=== PATIENT | female | born 1990 | race Caucasian/White ===

== ENCOUNTER 2019-01-12 08:56 | Emergency (ER) | payer BC ==
[~2019-01-12] VITALS: Ht 170.2 cm; Wt 108.9 kg
[~2019-01-12 08:56] MED LIST: ABILIFY5 MG PO; ADDERALL XR 3030 MG PO; CYTOMEL25 MCG PO
--- OUTSIDE RECORDS SUMMARY | 2019-01-12 08:59 | XMS REPORT | Summary of Care ---
Author Author NELSY Akbar, MANDI De Unknown Address Unknown Phone Unavailable Care Team Providers Care Indirect Sales Representative Name Role Phone Edgar MRory., Cee Unavailable Unavailable OLIVERIO CONRAD M.D. Unavailable Unavailable ANAMARIA VELASCO, OLIVERIO Unavailable Unavailable JACEK VELASCO ID, EMELY Unavailable Unavailable NANETTE ROMERO ID, MILI Unavailable Unavailable Unavailable Unavailable Functional Status Name Dates Details Functional status health issues are not documented Status: Name Dates Details Cognitive status health issues are not documented Status: Problems Name Dates Details Vaginal discharge (623.5, N89.8) Status: Active Encounter for routine gynecological examination with Papanicolaou smear of cervix (V72.31, Z01.419) Status: Active PCOS (polycystic ovarian syndrome) (256.4, E28.2) Status: Active Encounter for removal of subdermal contraceptive implant (V25.43, Z30.46) Status: Active Insertion of implantable subdermal contraceptive (V25.5, Z30.017) Status: Active Nexplanon removal (V25.43, Z30.46) Status: Active Nexplanon insertion (V25.5, Z30.017) Status: Active Medications Name Dates Details Nexplanon 68 MG Subcutaneous Implant * Start : 01-Feb-2015 Active Topamax 100 MG Oral Tablet * Refills: 0 Edgar M.A., Cee * Start : 22-Jan-2018 Active Vraylar 1.5 MG Oral Capsule * Refills: 0 Edgar M.A., Cee * Start : 22-Jan-2018 Active Pristiq 50 MG Oral Tablet Extended Release 24 Hour * Refills: 0 Edgar M.A., Cee * Start : 22-Jan-2018 Active Adderall 30 MG Oral Tablet * Refills: 0 * Start : 23-May-2013 Active Allergies and Adverse Reactions Name Dates Details No Known Drug Allergies (Allergy) Status: Active Past Medical History Name Dates Details Insertion of implantable subdermal contraceptive (V25.5, Z30.017) Status: Active Procedures Procedure Dates Details Procedures not documented Immunization Name Dates Details Gardasil Intramuscular Suspension #1 Lot #: [id number] on: 01-Nov-2010 Gardasil Intramuscular Suspension Lot #: [id number] on: 02-Jan-2011 Gardasil Intramuscular Suspension #3 Lot #: [id number] on: 25-Apr-2011 Fluvirin INJ #1 Lot #: [id number] on: 05-Feb-2012 Family History Name Dates Details Family history of lung cancer (V16.1, Z80.1) Status: Active Name Dates Details Family history of depression (V17.0, Z81.8) Status: Active Social History Name Dates Details - Status: Name Dates Details Never smoker Never smoker Vital Signs Date Test Result Details No Known Vitals to report Results Date Description Value Details [id number] [[facility]] CBC (INCLUDES DIFF/PLT) WBC 6.1 {K/CMM} Range: 3.7-10.4 RBC 4.10 {M/CMM} (Below low threshold) Range: 4.20-5.40 Hgb 13.3 g/dl Range: 12.0-16.0 Hct 38.7 % Range: 36.0-48.0 MCV 94.3 fL Range: 80.0-98.0 MCH 32.4 pg (Above high threshold) Range: 27.0-31.0 MCHC 34.4 g/dl Range: 32.0-36.0 RDW 12.9 % Range: 11.5-14.5 Platelet 241 {K/CMM} Range: 133-450 Mean Platelet Volume 8.6 fL Range: 7.4-10.4 [id number] [[facility]] Differential Segmented Neutrophils 59.0 % Range: 45.0-75.0 Monocytes 8.4 % Range: 2.0-12.0 Lymphocytes 30.5 % Range: 20.0-40.0 Eosinophils 1.2 % Range: 0.0-4.0 Basophils 0.9 % Range: 0.0-1.0 Segs-Bands # 3.6 {K/CMM} Range: 1.5-8.1 Lymphocytes # 1.9 {K/CMM} Range: 1.0-5.5 Monocytes # 0.5 {K/CMM} Range: 0.0-0.8 Eosinophils # 0.1 {K/CMM} Range: 0.0-0.5 Basophils # 0.1 {K/CMM} Range: 0.0-0.2 [id number] [[facility]] CMP W/EGFR Sodium Level 142 {mEq/l} Range: 135-145 Potassium Level 4.2 {mEq/l} Range: 3.5-5.1 Chloride Level 109 {mEq/l} Range: 95-109 Carbon Dioxide 23 {mEq/l} (Below low threshold) Range: 24-32 AGAP 14.2 {mEq/l} Range: 10.0-20.0 Glucose Lvl 94 mg/dl Range: 70-99 Comments: Adult reference range values reflect the clinical guidelinesof the [place] [employer]. Creatinine Lvl 0.90 mg/dl Range: 0.50-1.40 Blood Urea Nitrogen 10 mg/dl Range: 7-22 BUN/Creatinine Ratio 11 Range: 6-25 Total Protein 7.0 g/dl Range: 6.4-8.4 Albumin Lvl 3.6 g/dl Range: 3.5-5.0 Globulin 3.4 g/dl Range: 2.7-4.2 A/G Ratio 1.1 Range: 0.7-1.6 Calcium Level Total 8.9 mg/dl Range: 8.5-10.5 ALT 25 u/l Range: 0-65 AST 10 u/l Range: 0-37 Bili Total 0.4 mg/dl Range: 0.2-1.3 Alk Phos 104 u/l Range: 39-136 Comments: The pediatric reference ranges for this test represent a CLSI- basedtransference of the CALIPER database of pediatric reference intervals to the[facility] analyzer (Clinical Biochemistry 46 (2013): 9064-6362). [facility] [employer] has not internally validated these referenceranges and therefore they should be used only in the context of a thoroughclinical assessment. eGFR 89 {ML/MIN/1.7} Comments: The eGFR is calculated using the CKD-EPI formula. In most young, healthyindividuals the eGFR will be >90 mL/min/1.73m2. The eGFR declines with age. AneGFR of 60-89 may be normal in some populations, particularly the elderly, forwhom the CKD-EPI formula has not been extensively validated. Use of the eGFR isnot recommended in the following populations:Individuals with unstable creatinine concentrations, including patients and those with serious co-morbid conditions.Patients with extremes in muscle mass or diet.The data above are obtained from the National Kidney Disease Education Program(NKDEP) which additionally recommends that when the eGFR is used in patientswith extremes of body mass index for purposes of drug dosing, the eGFR shouldbe multiplied by the estimated BMI. [[facility]] FOLATE, SERUM Folate Level 8.2 ng/ml Range: >=3.0 [[facility]] IRON AND TOTAL IRON BINDING CAPACITY Iron 59 ug/dL Range: 30-160 % Satur Fe 18 % Range: 12-57 TIBC 330 ug/dL Range: 228-428 UIBC 271 ug/dL Range: 110-370 [[facility]] LIPID PANEL Chol 188 mg/dl Range: <=199 Trig 246 mg/dl (Above high threshold) Range: <=149 HDL Cholesterol 37 mg/dl (Below low threshold) Range: >=61 LDL 102 mg/dl (Above high threshold) Range: <=99 CHD Risk 5.08 Range: 3.90-5.80 VLDL 49 [[facility]] VITAMIN B12 Vitamin B12 Level 328 pg/ml Range: 254-1320 [[facility]] TSH, 3RD GENERATION W/REFLEX TO FT4 TSH 2.190 {uIU/ml} Range: 0.360-3.740 [[facility]] PTH, INTACT (WITHOUT CALCIUM) Parathyroid Hormone Intact 56.3 pg/ml Range: 18.4-80.1 [[facility]] HEMOGLOBIN A1c Hemoglobin A1c 5.2 % Range: <=5.6 [H] Vitamin E Lvl Alpha-Tocopherol 10.2 mg/L Range: 5.9-19.4 Comments: This test was developed and its performance characteristicsdetermined by [employer]. It has not been cleared orapproved by the Food and Drug Administration. Gamma-Tocopherol 2.5 mg/L Range: 0.7-4.9 Comments: This test was developed and its performance characteristicsdetermined by [employer]. It has not been cleared orapproved by the Food and Drug Administration.Reference intervals for alpha and gamma-tocopheroldetermined from National Health and Nutrition ExaminationSurvey, 7410-5415. Individuals with alpha-tocopherol levelsless than 5.0 mg/L are considered vitamin E deficient.Performed At: [address] [id number] Page MD Ph:[phone] [id number] [H] Vit A Vitamin A Level 51.4 ug/dL Range: 18.9-57.3 Comments: Reference intervals for vitamin A determined from [facility]. Individuals with vitamin A less than 20ug/dL are considered vitamin A deficient and those withserum concentrations less than 10 ug/dL are consideredseverely deficient.This test was developed and its performance characteristicsdetermined by [employer]. It has not been cleared orapproved by the Food and Drug Administration.Performed At: [address] [id number] Page MD Ph:[phone] [id number]:09 [[facility]] VITAMIN B1, WHOLE BLOOD Vitamin B1 Level 139.1 nmol/L Range: 66.5-200.0 Comments: This test was developed and its performance characteristicsdetermined by [employer]. It has not been cleared orapproved by the Food and Drug Administration.Performed At: [address] [id number] Page MD Ph:[phone] [id number] ID Pathology Report Comments: Department of Pathology & Laboratory Medicine For: MSB 2.[address] [place] [address] [facility] Phone: [phone] [address] [facility] [place], [facility] [address] Email: [email or web address] [id number] [email or web address] Report Diagnosis:Stomach, antrum, biopsy: - Chronic gastritis. - Negative for Helicobacter pylori by immunoperoxidase staining. Darline Helton Electronically Signed ([id number]) Specimen Submitted: Stomach antrum biopsy Clinical Data:GERD desires sleeve gastrectomy Gross Description:Received in formalin, labeled with the patient's name, MRN and "biopsy stomach antrum"are two, irregular, adler-white, soft tissue fragments aggregating to 0.5 x 0.5 x 0.1 cm. The specimen is filtered and is submitted in toto in cassette 1A. Microscopic Description:Sections show chronic inflammation. There is no acute inflammation, metaplasia,dysplasia, or malignancy. Immunoperoxidase staining for Helicobacter pylori is negative. ImmunoperoxidaseImmunostaining, with adequate controls, performed on sections of block 1A is forHelicobacter pylori organisms.The immunohistochemical testing was developed and its performance characteristicsdetermined by the [facility]. Except where stated, it has not beencleared or approved by the U.S. Food and Drug Administration. The FDA has determined thatsuch clearance or approval is not necessary. This test is used for clinical purposes. Itshould not be regarded as investigational or for research. This laboratory is certifiedunder the Clinical Laboratory Improvement Amendments of 1988 (CLIA) as qualified toperform high complexity clinical laboratory testing. Teaching Physician StatementI have personally reviewed the resident's preliminary and all specimen preparation andhave personally issued this report. REPORT Plan of Care Name Dates Details Planned Observations Planned Goals not documented Planned Encounters Appointment; OLIVERIO CONRAD M.D. On: 20-Dec-2018 9:00 Appointment; MILI FITZPATR[address] RD On: 03-Jan-2019 9:00 Instructions Name Dates Details Instructions not documented Encounters Appointment; EMELY READ M.D. Encounter Diagnosis: Problem not documented On: 22-Jan-2018 10:30 Appointment; OLIVERIO CONRAD M.D. Encounter Diagnosis: Problem not documented On: 04-Dec-2018 9:45 Appointment; OLIVERIO CONRAD M.D. Encounter Diagnosis: Problem not documented On: 20-Dec-2018 9:00
== END 2019-01-12 10:27 | disposition home or self-care (01) ==
LOC: ER 08:56
DX: M54.2 Cervicalgia (principal); M54.12 Radiculopathy, cervical region; F41.9 Anxiety disorder, unspecified; F31.9 Bipolar disorder, unspecified
CPT/HCPCS: 99283

== ENCOUNTER 2023-09-16 21:07 | Emergency (ER) | payer BC ==
[~2023-09-16] VITALS: Ht 170.2 cm; Wt 108.9 kg
[2023-09-16] MEDS ORDERED: VALTREX1000 MG PO (21:35)
[2023-09-16 21:58] VITALS: BP 137/89; PULSE 82; RESP 18; TEMP 98; O2SAT 99
[2023-09-17] MEDS ORDERED: DOXYCYCLINE HY100 MG PO (22:53)
[2023-09-17] MEDS ORDERED: HYDROCODON-ACE1 EA12 PO (22:54)
== END 2023-09-16 21:59 | disposition home or self-care (01) ==
LOC: FSED 21:13
DX: B02.9 Zoster without complications (principal); F90.9 Attention-deficit hyperactivity disorder, unspecified type
CPT/HCPCS: 99282

== ENCOUNTER 2023-09-17 20:45 | Emergency (ER) | payer BC ==
[~2023-09-17] VITALS: Ht 170.2 cm; Wt 108.9 kg
[~2023-09-17 20:45] MED LIST changes: +VALTREX1000 MG PO
[2023-09-17] MEDS ORDERED: DOXYCYCLINE HY100 MG PO (22:53)
[2023-09-17] MEDS ORDERED: HYDROCODON-ACE1 EA12 PO (22:54)
[2023-09-17] MEDS: LIDOCAINE HCL 1% LOCAL INJ 20 ML VIAL INJ ONE (23:23)
[2023-09-17] MEDS: KETOROLAC TROMETHAMINE 60 MG/2 ML VIAL IM ONE (23:23)
[2023-09-17] MEDS: CEFTRIAXONE 1 GM VIAL IM ONE (23:23)
[2023-09-17] MEDS ORDERED: CEFTRIAXONE 1 GM VIAL ONE (23:26)
[2023-09-17] MEDS ORDERED: LIDOCAINE HCL 1% LOCAL INJ 20 ML VIAL ONE (23:26)
[2023-09-17] MEDS ORDERED: KETOROLAC TROMETHAMINE 60 MG/2 ML VIAL ONE (23:26)
[2023-09-18 00:04] VITALS: BP 121/84; PULSE 75; RESP 18; TEMP 98.3; O2SAT 100
== END 2023-09-18 00:07 | disposition home or self-care (01) ==
LOC: FSED 20:50
DX: M79.621 Pain in right upper arm (principal); B02.9 Zoster without complications; L03.113 Cellulitis of right upper limb; E03.9 Hypothyroidism, unspecified; F31.9 Bipolar disorder, unspecified; F41.9 Anxiety disorder, unspecified
CPT/HCPCS: 81025; 99283; J0696; J1885; J2001